=== PATIENT | female | born 1970 ===

== ENCOUNTER 2018-04-07 07:46 | Outpatient (CLI) | payer OTHER | END 2018-04-07 07:50 | disposition home or self-care (01) | LOC: SONOGRAMA 07:46 | DX: E04.1 Nontoxic single thyroid nodule (principal) ==

== ENCOUNTER 2018-10-13 17:41 | Emergency (ER) | payer OTHER ==
[~2018-10-13] VITALS: Ht 165.1 cm; Wt 72.6 kg
[2018-10-13] MEDS ORDERED: IBESARTAN (19:02)
[2018-10-13] MEDS ORDERED: HUMALOG100 UNIT/1 SQ (19:02)
[2018-10-13] MEDS ORDERED: LANTUS SOL100 UNIT/1 (19:02)
== END 2018-10-13 22:07 | disposition home or self-care (01) ==
LOC: ER 17:41
DX: S93.402A Sprain of unspecified ligament of left ankle, initial encounter (principal); X50.3XXA Overexertion from repetitive movements, initial encounter; Y93.89 Activity, other specified; Y92.89 Other specified places as the place of occurrence of the external cause; Y99.8 Other external cause status